=== PATIENT | female | born 1990 | race Hispanic/Latino ===

== ENCOUNTER 2017-11-04 09:58 | Emergency (ER) | payer SELFPAY ==
--- NOTE | 2017-11-04 10:58 | RAD ---
PA AND LATERAL CHEST: HISTORY: Trauma. Chest pain. FINDINGS: The cardiomediastinum is normal. The lungs are well expanded and clear. The bony thorax is normal. IMPRESSION: Normal examination. POS: [facility]
[2017-11-04] MEDS ORDERED: Ketorolac Tromethamine 60 MG/2 ML VIAL ONE (11:19)
== END 2017-11-04 11:56 | disposition home or self-care (01) ==
LOC: ERS 09:58
DX: S20.212A Contusion of left front wall of thorax, initial encounter (principal); F41.9 Anxiety disorder, unspecified; Y04.0XXA Assault by unarmed brawl or fight, initial encounter
CPT/HCPCS: 71046; 96372; J1885

== ENCOUNTER 2018-06-02 14:45 | Emergency (ER) | payer SELFPAY | END 2018-06-02 15:28 | disposition home or self-care (01) | LOC: ERS 14:45 | DX: J30.2 Other seasonal allergic rhinitis (principal); B34.9 Viral infection, unspecified; F41.9 Anxiety disorder, unspecified | CPT/HCPCS: 87804; 99283 ==

== ENCOUNTER 2018-10-06 19:31 | Emergency (ER) | payer SELFPAY ==
[2018-10-06] MEDS ORDERED: Acetaminophen 500 MG TAB ONE (20:13)
[2018-10-06] MEDS ORDERED: Ondansetron ODT 8 MG TAB ONE (20:13)
== END 2018-10-06 22:15 | disposition home or self-care (01) ==
LOC: ERS 19:31
DX: R11.2 Nausea with vomiting, unspecified (principal); R19.7 Diarrhea, unspecified; R50.9 Fever, unspecified; F41.9 Anxiety disorder, unspecified
CPT/HCPCS: 99283